=== PATIENT | female | born 1950 | race Caucasian/White ===

== ENCOUNTER 2020-08-27 09:09 | Inpatient (IN) | payer OTHER ==
[~2020-08-27] VITALS: Ht 154.9 cm; Wt 54.4 kg
--- NOTE | 2020-08-27 09:30 | NUR ---
SENT HERE FROM [facility] FOR H/H=5.4/19.8. PATIENT A/OX4, BREATHING EVEN AND UNLABORED, NO SOB NOTED, NEEDS ATTENDED.
--- NOTE | 2020-08-27 09:40 | NUR ---
LORRIE [phone].
[2020-08-27 09:49] LABS: BASOPHILS # (AUTO) 0.1 /CMM (0.0-0.2)
[2020-08-27 09:55] LABS: EOSINOPHILS % (AUTO) 0.7 % (0.0-6.0); HEMATOCRIT 22 % (33-45); LYMPHOCYTES # (AUTO) 1.4 /CMM (0.8-4.8); LYMPHOCYTES % (AUTO) 15.1 % (20.0-44.0); MEAN CORPUSCULAR HGB CONC 27 g/dl (31.0-36.0); MEAN CORPUSCULAR VOLUME 71 fL (82-100); MONOCYTES # (AUTO) 0.5 /CMM (0.1-1.30); MONOCYTES % (AUTO) 5.5 % (2.0-12.0); NEUTROPHILS # (AUTO) 7.3 /CMM (1.8-8.9); NEUTROPHILS % (AUTO) 77.7 % (43.0-81.0); PLATELET COUNT (AUTO) 381 /CMM (150-450); RED BLOOD CELL COUNT(AUTO) 3.05 MIL/uL (4.0-5.2); WHITE BLOOD COUNT (AUTO) 9.4 K/uL (4.3-11.0)
[2020-08-27 09:57] LABS: HEMOGLOBIN 5.9 g/dL (11.5-14.8)
[2020-08-27 09:58] LABS: CALCIUM, SERUM 8.7 mg/dL (8.5-10.1); CREATININE 0.4 mg/dL (0.6-1.3); POTASSIUM 3.7 mmol/L (3.5-5.1)
[2020-08-27 10:04] LABS: ALBUMIN 2.9 g/dL (3.4-5.0); BILIRUBIN,TOTAL 0.3 mg/dL (0.2-1.0); TOTAL PROTEIN, SERUM 6.2 g/dL (6.4-8.2)
[2020-08-27 11:00] LABS: BAND % (MANUAL) 1 % (0.0-5.0); EOSINOPHILS % (MANUAL) 1 % (0-4); LYMPHOCYTES % (MANUAL) 9 % (16-48); MONOCYTES % (MANUAL) 4 % (0-11.0); NEUTROPHILS % (MANUAL) 85 (42-76)
--- NOTE | 2020-08-27 12:41 | NUR ---
BLOOD TRANSFUSION INITIATED AT 1234, NO ADVERSE REACTION AT THIS TIME. PATIENT A/OX4, BREATHING EVEN AND UNLABORED. NO SOB NOTED.
[2020-08-27] MEDS ORDERED: ZOLP5TAB2 PO (12:44)
[2020-08-27] MEDS ORDERED: GABA-532 PO (12:44)
[2020-08-27] MEDS ORDERED: HYDR-4354 PO (12:44)
[2020-08-27] MEDS ORDERED: CARV12.52 PO (12:44)
[2020-08-27] MEDS ORDERED: DEXA2TAB PO (12:44)
[2020-08-27] MEDS ORDERED: ASPI-992 PO (12:44)
[2020-08-27] MEDS ORDERED: ASCO-352 PO (12:44)
[2020-08-27] MEDS ORDERED: BISA10SU11 RC (12:44)
[2020-08-27] MEDS ORDERED: MORP100S3 PO (12:44)
[2020-08-27] MEDS ORDERED: MULT-447 PO (12:44)
[2020-08-27] MEDS ORDERED: ONDA4TAB5 PO (12:44)
[2020-08-27] MEDS ORDERED: FERR325T23 PO (12:44)
[2020-08-27] MEDS ORDERED: MAGN400O6 PO (12:44)
[2020-08-27] MEDS ORDERED: MAGN125C PO (12:44)
[2020-08-27] MEDS ORDERED: QUET25TA PO (12:44)
[2020-08-27] MEDS ORDERED: HYOS0.1273 PO (12:44)
[2020-08-27] MEDS ORDERED: ACET-868 PO (12:44)
[2020-08-27] MEDS ORDERED: NITR0.4T48 SL (12:44)
[2020-08-27] MEDS ORDERED: POLY17PO4 PO (12:44)
[2020-08-27] MEDS ORDERED: AMLO-213 PO (12:44)
[2020-08-27] MEDS ORDERED: ALBU18HF2 IH (12:44)
[2020-08-27] MEDS ORDERED: IPRA3AMP23 IH (12:44)
[2020-08-27] MEDS ORDERED: ACET650S11 RC (12:44)
[2020-08-27] MEDS ORDERED: ESCI10TA PO (12:44)
[2020-08-27] MEDS ORDERED: DOCU-141 PO (12:44)
[2020-08-27] MEDS ORDERED: DIPH25CA51 PO (12:44)
[2020-08-27] MEDS ORDERED: FLUT1DIS3 IH (12:44)
--- NOTE | 2020-08-27 14:25 | NUR ---
Received a call from Latonia REYES from [facility] and will call back for transfer info.
--- NOTE | 2020-08-27 14:45 | NUR ---
Blood transfusion completed. No adverse reaction noted.
[2020-08-27] MEDS ORDERED: ACETAMINOPHEN 325 MG TABLET PO PRN (16:30)
[2020-08-27] MEDS ORDERED: ZOLPIDEM TARTRATE 5 MG TABLET PO PRN (16:30)
[2020-08-27] MEDS ORDERED: MAGNESIUM HYDROXIDE 30 ML UDC PO PRN (16:30)
[2020-08-27] MEDS ORDERED: MAG HYDROX/AL HYDROX/SIMETH 30 ML UDC PO PRN (16:30)
[2020-08-27] MEDS ORDERED: Z GUARD REMEDY 2 OZ OINT TP PRN (16:30)
[2020-08-27] MEDS ORDERED: ONDANSETRON HCL/PF 4 MG/2 ML VIAL IVP PRN (16:30)
--- NOTE | 2020-08-27 18:45 | NUR ---
PATIENT ATE DINNER, NO DISTRESS NOTED. NEEDS ATTENDED. KEPT COMFORTABLE.
--- NOTE | 2020-08-27 19:45 | NUR ---
TOOK OVER PT CARE. PT REQUESTED FOR BLANKETS AND A PILLOW. PT WAS REPOSITIONED IN BED, ON MONITOR AND PULSE OX. VSS. RESTING COMFORTABLY. CALL LIGHT AT BEDSIDE. WILL CONTINUE TO MONITOR.
[2020-08-27] MEDS ORDERED: ZOLPIDEM TARTRATE 5 MG TABLET ONE (23:33)
[2020-08-27] MEDS ORDERED: HYDROCODONE/APAP 5/325MG TABLET ONE (23:40)
[2020-08-27] MEDS: HYDROCODONE/APAP 5/325MG TABLET PO PRN (23:42)
--- NOTE | 2020-08-28 01:41 | NUR ---
PT ASLEEP, VSS. ON MONITOR AND PULSE OX.
[2020-08-28] MEDS ORDERED: LORAZEPAM INJ 2 MG/ML VIAL ONE (03:03)
[2020-08-28] MEDS ORDERED: LORAZEPAM INJ 2 MG/ML VIAL IV PRN (03:30)
--- NOTE | 2020-08-28 05:18 | NUR ---
PT REMAINS ASLEEP, PROVIDED WITH BLAKETS. PT REPOSITIONED TO THE LEFT.
[2020-08-28 05:29] LABS: BASOPHILS # (AUTO) 0.1 /CMM (0.0-0.2); BASOPHILS % (AUTO) 1.1 % (0.0-2.0); EOSINOPHILS % (AUTO) 0.7 % (0.0-6.0); HEMATOCRIT 25 % (33-45); HEMOGLOBIN 7.3 g/dL (11.5-14.8); LYMPHOCYTES # (AUTO) 2.7 /CMM (0.8-4.8); LYMPHOCYTES % (AUTO) 31.2 % (20.0-44.0); MEAN CORPUSCULAR HGB CONC 29 g/dl (31.0-36.0); MEAN CORPUSCULAR VOLUME 73 fL (82-100); MONOCYTES # (AUTO) 0.8 /CMM (0.1-1.30); MONOCYTES % (AUTO) 9.4 % (2.0-12.0); NEUTROPHILS % (AUTO) 57.6 % (43.0-81.0); PLATELET COUNT (AUTO) 387 /CMM (150-450); RED BLOOD CELL COUNT(AUTO) 3.49 MIL/uL (4.0-5.2); WHITE BLOOD COUNT (AUTO) 8.7 K/uL (4.3-11.0)
[2020-08-28 05:32] LABS: CALCIUM, SERUM 8.2 mg/dL (8.5-10.1); CREATININE 0.3 mg/dL (0.6-1.3); MAGNESIUM 2.1 mg/dL (1.8-2.4); PHOSPHORUS 3.4 mg/dL (2.5-4.9); POTASSIUM 3.8 mmol/L (3.5-5.1)
[2020-08-28 05:57] LABS: LYMPHOCYTES % (MANUAL) 34 % (16-48); MONOCYTES % (MANUAL) 6 % (0-11.0); NEUTROPHILS % (MANUAL) 60 (42-76)
--- NOTE | 2020-08-28 07:00 | NUR ---
PT RESTING COMFORTABLY. REMAINS ASLEEP. VSS. REMAINS ON 2L NC, SAT 99%.
--- NOTE | 2020-08-28 07:36 | NUR ---
PATIENT IN BED ASLEEP. EASILY AROUSABLE BY VOICE. HOOKED TO MONITOR. VSS. WILL CONTINUE TO MONITOR ACCORDINGLY
--- NOTE | 2020-08-28 09:01 | NUR ---
BREAKFAST TRAY PROVIDED. TOLERATED PO WELL. ATE 50% OF BREAKFAST
--- NOTE | 2020-08-28 09:42 | NUR ---
PATIENT C/O ABDOMINAL PAIN. MADE DR FERNANDEZ AWARE
--- NOTE | 2020-08-28 10:45 | NUR ---
DR FERNANDEZ AT BEDSIDE
--- NOTE | 2020-08-28 10:49 | NUR ---
RECEIVED VERBAL ORDER FROM DR FERNANDEZ FOR ZANAX 0.25MG PO Q8 PRN FOR ANXIETY AND CT SCAN OF ABDOMEN. CARRIED OUT
[2020-08-28] MEDS ORDERED: ALPRAZOLAM 0.25 MG TABLET ONE ×2 (11:45→20:05)
[2020-08-28] MEDS ORDERED: HYDROCODONE/APAP 5/325MG TABLET ONE ×2 (11:45→20:05)
[2020-08-28] MEDS: HYDROCODONE/APAP 5/325MG TABLET PO PRN ×2 (11:48→20:12)
[2020-08-28] MEDS: ALPRAZOLAM 0.25 MG TABLET PO PRN ×2 (11:48→20:12)
--- NOTE | 2020-08-28 12:32 | NUR ---
PICKED UP BY [employer] FABRICATION SUPERVISOR VIA [facility] FOR CT SCAN.
--- NOTE | 2020-08-28 12:56 | NUR ---
LUNCH TRAY PROVIDED. TOLERATED PO WELL
[2020-08-28] MEDS ORDERED: IV NS 0.9% 250 ML IV ONE (14:07)
[2020-08-28] MEDS ORDERED: IOHEXOL-300 100 ML VIAL IV ONE (14:07)
--- NOTE | 2020-08-28 14:35 | NUR ---
[facility] [employer] [facility] PELVIS W CONTRAST
--- NOTE | 2020-08-28 16:40 | NUR ---
PATIENT IN BED ASLEEP. EASILY AROUSABLE BY VOICE. HOOKED TO MONITOR. VSS. WILL CONTINUE TO MONITOR ACCORDINGLY
--- NOTE | 2020-08-28 19:41 | NUR ---
REPORT GIVEN TO ZAINAB GAN FOR [facility]
--- NOTE | 2020-08-28 19:48 | NUR ---
TOOK OVER PT CARE. PT REMAINS RESTING IN BED, ON MONITOR, AND PULSE OX.
--- NOTE | 2020-08-28 22:28 | NUR ---
PT ASLEEP, VSS. ON MONITOR AND PULSE OX.
--- NOTE | 2020-08-29 05:13 | NUR ---
PT REPOSITIONED, PROVIDED WITH MORE BLANKETS, VSS.
[2020-08-29 05:40] LABS: BASOPHILS # (AUTO) 0.2 /CMM (0.0-0.2); BASOPHILS % (AUTO) 2.6 % (0.0-2.0); EOSINOPHILS % (AUTO) 2.8 % (0.0-6.0); HEMATOCRIT 26 % (33-45); HEMOGLOBIN 7.2 g/dL (11.5-14.8); LYMPHOCYTES % (AUTO) 34.7 % (20.0-44.0); MEAN CORPUSCULAR HGB CONC 28 g/dl (31.0-36.0); MEAN CORPUSCULAR VOLUME 74 fL (82-100); MONOCYTES # (AUTO) 0.6 /CMM (0.1-1.30); NEUTROPHILS # (AUTO) 2.9 /CMM (1.8-8.9); NEUTROPHILS % (AUTO) 49.9 % (43.0-81.0); PLATELET COUNT (AUTO) 390 /CMM (150-450); WHITE BLOOD COUNT (AUTO) 5.7 K/uL (4.3-11.0)
[2020-08-29 05:47] LABS: CALCIUM, SERUM 8.5 mg/dL (8.5-10.1); CREATININE 0.3 mg/dL (0.6-1.3); PHOSPHORUS 4.1 mg/dL (2.5-4.9); POTASSIUM 3.9 mmol/L (3.5-5.1)
[2020-08-29 06:00] LABS: EOSINOPHILS % (MANUAL) 3 % (0-4); LYMPHOCYTES % (MANUAL) 39 % (16-48); MONOCYTES % (MANUAL) 15 % (0-11.0); NEUTROPHILS % (MANUAL) 43 (42-76)
[2020-08-29 06:12] LABS: THYROID STIMULATING HORMONE 2.959 uIU/mL (0.358-3.74)
--- NOTE | 2020-08-29 06:31 | NUR ---
PT CLEANED, PROVIDED WITH MORE BLANKETS, ON MONITOR AND PULSE OX. VSS.
--- NOTE | 2020-08-29 07:40 | NUR ---
REPORT GIVEN TO ROSI GAN FOR [facility]
[2020-08-29] MEDS ORDERED: HYDROCODONE/APAP 5/325MG TABLET ONE ×3 (07:58→19:12)
[2020-08-29] MEDS: HYDROCODONE/APAP 5/325MG TABLET PO PRN ×4 (08:07→22:43)
--- NOTE | 2020-08-29 08:30 | NUR ---
provided pt with breakfast ate 80%
--- NOTE | 2020-08-29 10:15 | NUR ---
adl care provided. kept clean and dry and comfortable.
[2020-08-29] MEDS: POLYETHYLENE GLYCOL 3350 17 GM POWD.PACK PO SCH ×2 (12:00→22:34)
[2020-08-29] MEDS: DOCUSATE SODIUM 100 MG CAPSULE PO SCH ×2 (12:00→16:07)
--- NOTE | 2020-08-29 12:30 | NUR ---
provided with lunch ate 70%
[2020-08-29] MEDS: SOD FERRIC GLUC 125 MG in IV NS 0.9% 100 ML IV SCH (13:28)
[2020-08-29] MEDS ORDERED: DOCUSATE SODIUM LIQ 100 MG/10 ML UDC ONE (16:06)
--- NOTE | 2020-08-29 16:30 | NUR ---
x1 bm today. sent stool specimen to lab. cleaned pt. kept clean and dry. turned and repositioned,.
--- NOTE | 2020-08-29 17:30 | NUR ---
provided with dinner
[2020-08-29 18:40] LABS: OCCULT BLOOD STOOL NEGATIVE (NEGATIVE)
[2020-08-29] MEDS ORDERED: ALPRAZOLAM 0.25 MG TABLET ONE (19:12)
[2020-08-29] MEDS: ALPRAZOLAM 0.25 MG TABLET PO PRN (19:13)
--- NOTE | 2020-08-29 21:45 | NUR ---
REPORT GIVEN TO EV GAN FOR [facility]
--- NOTE | 2020-08-29 21:57 | NUR ---
PT TRANSFERED PER [facility] PROTOCOL
--- NOTE | 2020-08-29 22:00 | NUR ---
TELE/RN RECEIVED PATIENT FROM E.[facility]. VIA [facility]. PATIENT WAS AWAKE, ALERT, ORIENTED TO NAME ONLY, NO C/O PAIN, NO DISTRESS NOTED, MADE COMFORTABLE IN BED, PLACED CALL LIGHT IN REACH, UNABLE TO OBTAIN ADMISSION INFORMATIONS, SOME INFORMATIONS WERE OBTAINED FROM ER. NOTES, FALL PRECAUTIONS PER PROTOCOL, WILL MONITOR.
[2020-08-30 06:11] LABS: BASOPHILS # (AUTO) 0.1 /CMM (0.0-0.2); BASOPHILS % (AUTO) 1.6 % (0.0-2.0); EOSINOPHILS % (AUTO) 3.4 % (0.0-6.0); HEMATOCRIT 26 % (33-45); HEMOGLOBIN 7.5 g/dL (11.5-14.8); LYMPHOCYTES # (AUTO) 1.4 /CMM (0.8-4.8); LYMPHOCYTES % (AUTO) 20.3 % (20.0-44.0); MEAN CORPUSCULAR HGB CONC 28 g/dl (31.0-36.0); MEAN CORPUSCULAR VOLUME 74 fL (82-100); MONOCYTES # (AUTO) 0.4 /CMM (0.1-1.30); MONOCYTES % (AUTO) 6.2 % (2.0-12.0); NEUTROPHILS # (AUTO) 4.7 /CMM (1.8-8.9); NEUTROPHILS % (AUTO) 68.5 % (43.0-81.0); PLATELET COUNT (AUTO) 387 /CMM (150-450); RED BLOOD CELL COUNT(AUTO) 3.58 MIL/uL (4.0-5.2); WHITE BLOOD COUNT (AUTO) 6.8 K/uL (4.3-11.0)
[2020-08-30 06:13] LABS: CALCIUM, SERUM 8.5 mg/dL (8.5-10.1); CREATININE 0.3 mg/dL (0.6-1.3); MAGNESIUM 2.1 mg/dL (1.8-2.4); PHOSPHORUS 3.6 mg/dL (2.5-4.9); POTASSIUM 3.8 mmol/L (3.5-5.1)
--- NOTE | 2020-08-30 07:33 | NUR ---
BUSINESS PLANNER OPENING NOTES RECEIVED PT AWAKE IN BED IN NO ACUTE SIGNS OF DISTRESS. A/O X2. CONFUSED BUT VERBALLY RESPONSIVE, DENIES PAIN OR ANY DISCOMFORTS AT THIS TIME. ON 02 VIA N/C AT 2LPM, TOLERATING WELL WITH NO SOB NOTED. EXTERNAL MONITOR SHOWS NSR WITH HR ON THE 80'S, NO C/O CARDIAC DISTRESS VOICED AT THIS TIME. PT APPARENTLY REMOVED HER IV LINE THIS MORNING, WILL TRY TO INSERT ONE TODAY. SAFETY MEASURES IN PLACE: BED IN LOWEST LOCKED POSITION WITH SR UP X2, BED ALARM ON AND CALL LIGHT W/IN EASY REACH OF PT. WILL CONTINUE TO MONITOR PT.
--- NOTE | 2020-08-30 07:36 | NUR ---
TELE/RN PATIENT IS AWAKE, CONFUSED, COMFORTABLE, NO DISTRESS NOTE, ALL NEEDS ATTENDED AT THIS TIME. ENDORSED TO NEXT RN RE: SKIN AT THE BACK TO CHECK THE CLIENT EXPERIENCE ADMINISTRATOR LAST NIGHT WAS BUSY.
[2020-08-30 08:00] VITALS: BP 104/72
[2020-08-30] MEDS: DOCUSATE SODIUM 100 MG CAPSULE PO SCH ×2 (08:53→17:23)
[2020-08-30] MEDS: HYDROCODONE/APAP 5/325MG TABLET PO PRN ×2 (08:54→17:23)
--- NOTE | 2020-08-30 08:55 | NUR ---
RN NOTES PT NOTED GRIMACING, RESTLESS AND C/O GENERALIZED PAIN WITH SCALE OF 7/10. PRN NORCO 5/325 MG P.O. GIVEN AT 0853. WILL CONTINUE TO MONITOR AND REASSESS PT.
[2020-08-30] MEDS: ALPRAZOLAM 0.25 MG TABLET PO PRN ×2 (09:16→17:24)
--- NOTE | 2020-08-30 09:18 | NUR ---
RN NOTES PT VERY AGITATED AND YELLING, PRN XANAX 0.25MG TAB GIVEN ORDERED. WILL CONTINUE TO MONITOR PT.
[2020-08-30 09:33] LABS: IMMUNOGLOBULIN A, SERUM 217 mg/dL (87-352); IMMUNOGLOBULIN G, SERUM 632 mg/dL (586-1602); IMMUNOGLOBULIN M, SERUM 199 mg/dL (26-217)
[2020-08-30 12:00] VITALS: BP 110/57
--- NOTE | 2020-08-30 13:35 | NUR ---
RN NOTES PT INSERTED WITH NEW IV ACCESS ON RIGHT WRIST G #24, SECURED WITH TAPE AND DATED. WILL CONTINUE TO MONITOR.
[2020-08-30] MEDS: SOD FERRIC GLUC 125 MG in IV NS 0.9% 100 ML IV SCH (14:12)
[2020-08-30] MEDS ORDERED: INFLUENZA VACCINE 2020-21 0.5 ML DISP.SYRIN IM ONE (15:30)
--- NOTE | 2020-08-30 15:38 | NUR ---
RN NOTES FLU VACCINE REQUESTED BY PT AND ADMINISTERED TO RIGHT DELTOID. WILL CONTINUE TO MONITOR FOR ANY ADVERSE REACTIONS.
--- NOTE | 2020-08-30 17:27 | NUR ---
RN NOTES PT NOTED RESTLESS AND CONPLAINED OF GENERALIZED PAIN 7/10 SCALE, PRN NORCO 5/325 MG TAB AND XANAX 0.25MG TAB GIVEN ORDERED. WILL CONTINUE TO MONITOR AND REASSESS PT.
--- NOTE | 2020-08-30 18:06 | NUR ---
RN DISCHARGED NOTES PT DISCHARGED TO [facility] IN STABLE CONDITION. A/O X2-3. ABLE TO MAKE NEEDS KNOWN WITH PERIODS OF CONFUSION NOTED. ALL NEED SAND CARE PROVIDED WELL. CALLED AND REPORT GIVEN TO ODILIA TAVAREZ OF [facility] AND VERBALIZED UNDERSTANDING. PT WILL GO TO RM 212 PER RNS. V/S TAKEN AND RECORDED. SKIN IS INTACT. ALL BELONGINGS ACCOUNTED FOR AND SIGNED FORM. IV ACCESS REMOVED WITH NO ACTIVE BLEEDING NOTED. EXIT FOLDER HANDED TO EMT'S. PT LEFT UNIT [id number] ON AT 2LPM VIA N/C [facility]IA [employer] ACCOMPANIED BY 2 EMT'S FROM [facility]. MD AND CHARGE NURSE AWARE OF DISCHARGE. .
[2020-09-02 11:06] LABS: *SPE ALBUMIN 2.6 g/dL (2.9-4.4); *SPE ALPHA-1-GLOBULIN 0.2 g/dL (0.0-0.4); *SPE ALPHA-2-GLOBULIN 0.6 g/dL (0.4-1.0); *SPE BETA GLOBULIN 1.1 g/dL (0.7-1.3); *SPE GLOBULIN, TOTAL 2.7 g/dL (2.2-3.9); *SPE M-SPIKE Not Observed g/dL (Not Observed); *SPEGAMMA GLOBULIN 0.8 g/dL (0.4-1.8)
== END 2020-08-30 18:02 | DRG 812 ==
LOC: ER 09:21 → TRANSITION 16:16 → TELE 08-29 21:17
PROVIDERS: ADMIT Student in an Organized Health Care Education/Training Program; ATTEND Student in an Organized Health Care Education/Training Program
PROC: 30233N1 Transfusion of Nonautologous Red Blood Cells into Peripheral Vein, Percutaneous Approach (ICD-10-PCS; principal; 2020-08-27)
DX: D50.9 Iron deficiency anemia, unspecified (principal); J81.1 Chronic pulmonary edema; E44.0 Moderate protein-calorie malnutrition; E86.0 Dehydration; F32.9 Major depressive disorder, single episode, unspecified; K21.9 Gastro-esophageal reflux disease without esophagitis; J44.9 Chronic obstructive pulmonary disease, unspecified; I10 Essential (primary) hypertension; F41.9 Anxiety disorder, unspecified; I25.10 Atherosclerotic heart disease of native coronary artery without angina pectoris; Z88.8 Allergy status to other drugs, medicaments and biological substances; Z91.018 Allergy to other foods; Z79.82 Long term (current) use of aspirin; Z79.51 Long term (current) use of inhaled steroids; Z79.899 Other long term (current) drug therapy; R79.89 Other specified abnormal findings of blood chemistry; N20.0 Calculus of kidney; K59.00 Constipation, unspecified; N21.0 Calculus in bladder; R91.1 Solitary pulmonary nodule; K40.90 Unilateral inguinal hernia, without obstruction or gangrene, not specified as recurrent; K43.9 Ventral hernia without obstruction or gangrene; K44.9 Diaphragmatic hernia without obstruction or gangrene; D63.8 Anemia in other chronic diseases classified elsewhere; I70.0 Atherosclerosis of aorta; K76.89 Other specified diseases of liver
CPT/HCPCS: 36415; 71045-TC; 71250-TC; 74150-TC; 80048-TC; 80053-TC; 80061-TC; 82272-TC; 82728-TC; 82784; 83540-TC; 83735-TC; 84100-TC; 84155; 84165; 84443-TC; 84484-TC; 85025-TC; 85730-TC; 86334; 86850-TC; 87081-TC; 97112-TC; 97530-TC; G0378; J2060; J2405; J2916; J7030; J7050; P9016-BL; Q2036; Q9967; U0003

== ENCOUNTER 2020-11-08 20:44 | Emergency (ER) | payer OTHER ==
[~2020-11-08] VITALS: Ht 154.9 cm; Wt 54.4 kg
[~2020-11-08 20:44] MED LIST: ACET-868 PO; ACET650S11 RC; ALBU18HF2 IH; AMLO-213 PO; ASCO-352 PO; ASPI-992 PO; BISA10SU11 RC; CARV12.52 PO; DEXA2TAB PO; DIPH25CA51 PO; DOCU-141 PO; ESCI10TA PO; FERR325T23 PO; FLUT1DIS3 IH; GABA-532 PO; HYDR-4354 PO; HYOS0.1273 PO; IPRA3AMP23 IH; MAGN125C PO; MAGN400O6 PO; MORP100S3 PO; MULT-447 PO; NITR0.4T48 SL; ONDA4TAB5 PO; POLY17PO4 PO; QUET25TA PO; ZOLP5TAB2 PO
--- NOTE | 2020-11-08 20:45 | NUR ---
MICHAEL FROM [facility] C/O ABNORMAL LABS (HGB-7.3, HCT-25.4) ON 4L/NC @ SNF PER TRANSPORT REPORT., PT TO BED 6, GOWNED, JEANINE ANY SOB. NOT IN ACUTE DISTRESS, VSS. PENDING ER PROVIDER MARY
[2020-11-08 21:23] LABS: NEUTROPHILS # (AUTO) 4.3 /CMM (1.8-8.9)
[2020-11-08 21:26] LABS: PLATELET COUNT (AUTO) 337 /CMM (150-450); WHITE BLOOD COUNT (AUTO) 5.5 K/uL (4.3-11.0)
[2020-11-08 21:31] LABS: BASOPHILS % (AUTO) 0.9 % (0.0-2.0); EOSINOPHILS % (AUTO) 0.2 % (0.0-6.0); HEMATOCRIT 27 % (33-45); HEMOGLOBIN 7.8 g/dL (11.5-14.8); LYMPHOCYTES # (AUTO) 0.7 /CMM (0.8-4.8); LYMPHOCYTES % (AUTO) 12.3 % (20.0-44.0); MEAN CORPUSCULAR HGB CONC 29 g/dl (31.0-36.0); MEAN CORPUSCULAR VOLUME 73 fL (82-100); MONOCYTES # (AUTO) 0.4 /CMM (0.1-1.30); MONOCYTES % (AUTO) 7.5 % (2.0-12.0); NEUTROPHILS % (AUTO) 79.1 % (43.0-81.0); RED BLOOD CELL COUNT(AUTO) 3.73 MIL/uL (4.0-5.2)
[2020-11-08 21:37] LABS: ALANINE AMINOTRANSFERASE 26 U/L (12-78); ALBUMIN 2.8 g/dL (3.4-5.0); ALKALINE PHOSPHATASE 60 U/L (46-116); ASPARTATE AMINOTRANSFERASE 24 U/L (15-37); BILIRUBIN,DIRECT 0.1 mg/dL (0.0-0.2); BILIRUBIN,TOTAL 0.3 mg/dL (0.2-1.0); CHLORIDE 98 mmol/L (98-107); CREATININE 0.3 mg/dL (0.6-1.3); GLUCOSE 153 mg/dL (74-106); POTASSIUM 4.6 mmol/L (3.5-5.1); SODIUM SERUM 141 mmol/L (136-145); TOTAL PROTEIN, SERUM 6.2 g/dL (6.4-8.2); UREA NITROGEN, BLOOD 17 mg/dL (7-18)
[2020-11-08 21:39] LABS: CARBON DIOXIDE 46 mmol/L (21-32)
[2020-11-08 22:04] LABS: CALCIUM, SERUM 8.7 mg/dL (8.5-10.1); LIPASE 53 U/L (73-393)
[2020-11-08] MEDS ORDERED: ALBUTEROL FS 2.5 MG/0.5 ML VIAL.NEB NEB ONE (22:30)
[2020-11-08] MEDS ORDERED: ALBUTEROL FS 2.5 MG/0.5 ML VIAL.NEB ONE (22:35)
[2020-11-08 22:54] LABS: BILIRUBIN,URINE NEGATIVE (NEGATIVE); COLOR,URINE YELLOW (YELLOW); LEUKOCYTE ESTERASE ,URINE NEGATIVE (NEGATIVE); NITRITE, URINE NEGATIVE (NEGATIVE); PROTEIN,URINE NEGATIVE (NEGATIVE); UGLUCOSE NEGATIVE (NEGATIVE); UROBILINOGEN,URINE 0.2 EU/dL (0.2)
[2020-11-08 22:59] LABS: BACTERIA,URINE None seen /HPF (None Seen); SQUAMOUS EPITHELIAL CELL,UR Few /HPF (None Seen); WBC,URINE 0-2 /HPF (0-3)
[2020-11-08 23:00] LABS: MUCUS,URINE Few /LPF (None Seen)
[2020-11-08] MEDS ORDERED: CEFTRIAXONE 1GM BAG (ER ONLY) 1 GM/50 ML PIGGYBACK IV ONE (23:30)
[2020-11-08] MEDS ORDERED: AZITHROMYCIN 500 MG in IV D5W 250 ML IV ONE (23:30)
[2020-11-08] MEDS ORDERED: AZITHROMYCIN 500 MG VIAL ONE (23:43)
[2020-11-08] MEDS ORDERED: CEFTRIAXONE 1GM BAG (ER ONLY) 50 ML IV ONE (23:43)
[2020-11-09] MEDS ORDERED: Z GUARD REMEDY 2 OZ OINT TP PRN
[2020-11-09] MEDS ORDERED: MORPHINE SULFATE SOLN CONCENTRATED 20 MG/ML PO PRN
[2020-11-09] MEDS ORDERED: MAGNESIUM HYDROXIDE 30 ML UDC PO PRN
[2020-11-09] MEDS ORDERED: NITROGLYCERIN 0.4 MG/TAB BOTTLE SL PRN
[2020-11-09] MEDS ORDERED: ONDANSETRON HCL/PF 4 MG/2 ML VIAL IVP PRN
[2020-11-09] MEDS ORDERED: ACETAMINOPHEN 325 MG TABLET PO PRN
[2020-11-09] MEDS ORDERED: BISACODYL SUPP (10 MG) 10 MG/SUPP.RECT SUPP.RECT RC PRN
[2020-11-09] MEDS ORDERED: HYDROCODONE/APAP 10/325MG TABLET PO PRN
[2020-11-09] MEDS ORDERED: IV NS 0.9% 1,000 ML IV PRN
--- NOTE | 2020-11-09 02:26 | NUR ---
[facility] ETA 0830.
--- NOTE | 2020-11-09 03:54 | NUR ---
PT ACCEPTED AT: [facility] ROOM 718 CALL FOR REPORT [phone] DR. JOHNSTON
--- NOTE | 2020-11-09 06:45 | NUR ---
PT PROVIDED SNACKS. UPDATED RE: TRANSFER., PT AWARE
--- NOTE | 2020-11-09 07:30 | NUR ---
RECEIVED REPORT FROM MALIK TERRAZAS FOR [facility]. PT ASLEEP ON BED EASILY AROUSABLE, NOT IN RESPIRATORY DISTRESS, V/S STABLE, KEPT RESTED AND COMFORTABLE. WILL CONTINUE TO MONITOR.
--- NOTE | 2020-11-09 07:58 | NUR ---
ELMER NOT GIVEN PT WILL BE TRANSFER TO [facility].
[2020-11-09] MEDS ORDERED: PIPERACILLIN /TAZOBACTAM 3.375 G in IV D5W 50 ML IV ONE (08:00)
--- NOTE | 2020-11-09 08:04 | NUR ---
REPORT GIVEN TO MALIK BURCIAGA OF [facility] FOR [facility].
[2020-11-09] MEDS ORDERED: QUETIAPINE FUMARATE 25 MG TABLET PO SCH (09:00)
[2020-11-09] MEDS ORDERED: ESCITALOPRAM OXALATE (10 MG) 10 MG TABLET PO SCH (09:00)
[2020-11-09] MEDS ORDERED: POLYETHYLENE GLYCOL 3350 17 GM POWD.PACK PO SCH (09:00)
[2020-11-09] MEDS ORDERED: AMLODIPINE BESYLATE 10 MG TABLET PO SCH (09:00)
[2020-11-09] MEDS ORDERED: CARVEDILOL 12.5 MG TABLET PO SCH (09:00)
[2020-11-09] MEDS ORDERED: FERROUS SULFATE (325 MG) 325 MG/TAB TABLET PO SCH (09:00)
[2020-11-09] MEDS ORDERED: GABAPENTIN 100 MG CAPSULE PO SCH (09:00)
[2020-11-09] MEDS ORDERED: ASPIRIN 325 MG TABLET PO SCH (09:00)
[2020-11-09] MEDS ORDERED: FLUTICASONE/VILANTEROL 1 EACH BLST.W.DEV IH SCH (09:00)
[2020-11-09] MEDS ORDERED: DEXAMETHASONE 1 MG TABLET PO SCH (09:00)
[2020-11-09] MEDS ORDERED: ALBUTEROL SULFATE INH 18 GM HFA.AER.AD IH SCH (09:00)
[2020-11-09] MEDS ORDERED: ASCORBIC ACID 500 MG TABLET PO SCH (09:00)
[2020-11-09] MEDS ORDERED: DOCUSATE SODIUM 100 MG CAPSULE PO SCH (09:00)
--- NOTE | 2020-11-09 09:00 | NUR ---
called [facility] ambulance 10-1030 per [place]. [phone]
[2020-11-09] MEDS ORDERED: ALBUTEROL FS 2.5 MG/0.5 ML VIAL.NEB ONE (10:23)
--- NOTE | 2020-11-09 10:25 | NUR ---
ER AT BEDSIDE FOR BREATHING [place].
[2020-11-09] MEDS ORDERED: ALBUTEROL FS 2.5 MG/0.5 ML VIAL.NEB NEB ONE (10:30)
[2020-11-09] MEDS ORDERED: VANCOMYCIN 1 GM in IV D5W 250 ML IV SCH (11:00)
[2020-11-09 12:38] VITALS: BP 114/73
--- NOTE | 2020-11-09 12:39 | NUR ---
patient picked by private ambulance going to [facility] in no distress.
[2020-11-09] MEDS ORDERED: PIPERACILLIN /TAZOBACTAM 3.375 G in IV D5W 100 ML IV SCH (13:00)
[2020-11-09] MEDS ORDERED: ZOLPIDEM TARTRATE 5 MG TABLET PO SCH (22:00)
[2020-11-09] MEDS ORDERED: VANCOMYCIN 0.75 GM in IV D5W 250 ML IV SCH (23:00)
== END 2020-11-09 12:39 | disposition short-term general hospital (02) ==
LOC: ER 20:48
DX: D64.9 Anemia, unspecified (principal); J18.9 Pneumonia, unspecified organism; R07.9 Chest pain, unspecified; J44.0 Chronic obstructive pulmonary disease with (acute) lower respiratory infection; R94.31 Abnormal electrocardiogram [ECG] [EKG]; Z20.822 Contact with and (suspected) exposure to COVID-19
CPT/HCPCS: 36415; 71045 ×2; 80048; 80076; 81001; 83605; 83690; 84484; 85025; 85730; 86850; 87040 ×2; 87081; 87426; 93005; 94640 ×2; 96365; 96368; 99285; C9803 ×2; J0456; J0696; J7050; U0003; J2543; J3370; J7060